=== PATIENT | male | born 1955 | race Caucasian/White ===

== ENCOUNTER 2017-01-08 14:18 | Emergency (ER) | payer BC ==
[2017-01-08 15:08] LABS: #Lymphocytes 1.5 thou/uL (1.20-3.40); #Monocytes 0.7 thou/uL (0.11-0.59); #Neutrophils 4.5 thou/uL (1.40-6.50); %Basophils 0.4 % (0.0-1.0); %Eosinophils 0.5 % (0.0-10.0); %Lymphocytes 22.3 % (21.0-51.0); %Monocytes 9.8 % (0.0-10.0); Hematocrit 45.7 % (42.0-52.0); Red Blood Cell (RBC) Count 4.84 mill/uL (4.70-6.10); White Blood Cell (WBC) Count 6.7 thou/uL (4.8-10.8)
[2017-01-08 15:23] LABS: ALT (SGPT) 20 U/L (8-55); AST (SGOT) 17 U/L (5-34); Alkaline Phosphatase 55 U/L (40-150); Anion Gap 11 mmol/L (10-20); BUN (Urea Nitrogen) 23 mg/dL (8.4-25.7); Bilirubin, Total 0.7 mg/dL (0.2-1.2); CK (CPK) 212 U/L (30-200); Calc. Creatinine Clearance 0 mL/min (70-130); Calcium 9.3 mg/dL (7.8-10.44); Carbon Dioxide 28 mmol/L (22-29); Chloride 103 mmol/L (98-107); Estimated GFR-MDRD 74; Globulin 2.9 g/dL (2.4-3.5); Lipase 50 U/L (8-78); Protein, Total 7.2 g/dL (6.0-8.3)
[2017-01-08 15:35] LABS: Troponin I Less than 0.010 ng/mL (< 0.028)
[2017-01-08 15:40] LABS: Bilirubin Negative (Negative); Blood, Urine Negative (Negative); Glucose, Urine (Dipstick) Negative (Negative); Ketone, Urine Negative (Negative); Nitrite Negative (Negative); Protein, Urine (Dipstick) Negative (Neg-Trace); Urobilinogen 0.2 mg/dL (0.2-1.0)
--- NOTE | 2017-01-08 17:08 | RAD ---
PORTABLE CHEST: Date: 01/08/17 HISTORY: Dyspnea. FINDINGS: Lungs are clear. Vasculature is normal. Heart size within normal range. IMPRESSION: No acute process identified. POS: [id number]
== END 2017-01-08 16:22 | disposition home or self-care (01) ==
LOC: ERS 14:18
DX: R00.2 Palpitations (principal); F41.9 Anxiety disorder, unspecified
CPT/HCPCS: 36415; 71010; 80053; 81003; 82550; 82553; 83690; 84443; 84484; 85025; 93005

== ENCOUNTER 2021-01-07 09:17 | Outpatient (CLI) | payer BC | END 2021-01-07 09:18 | disposition home or self-care (01) | LOC: LABBT 09:17 | PROVIDERS: ATTEND Surgery | DX: Z01.818 Encounter for other preprocedural examination (principal); M50.10 Cervical disc disorder with radiculopathy, unspecified cervical region; M48.02 Spinal stenosis, cervical region; Z20.822 Contact with and (suspected) exposure to COVID-19 | CPT/HCPCS: 80048; 85027; 85610; 85730; 86850; 86900; 86901; 93005; 93010; U0003; U0005 ==

== ENCOUNTER 2021-01-10 05:59 | Observation (INO) | payer BC ==
[2021-01-07 13:01] LABS: Anion Gap 14 mmol/L (10-20); BUN (Urea Nitrogen) 18 mg/dL (8.4-25.7); Calc. Creatinine Clearance 0 mL/min (70-130); Calcium 9.2 mg/dL (7.8-10.44); Carbon Dioxide 25 mmol/L (23-31); Chloride 106 mmol/L (98-107); Glucose 183 mg/dL (80-115); Sodium 141 mmol/L (136-145)
[2021-01-07 13:04] LABS: Hemoglobin 13.5 g/dL (13.5-17.5); Mean Corpuscular HGB CONC 32.6 g/dL (32.0-36.0); Mean Corpuscular Volume 95.2 fl (81.2-95.1); Platelet Count 213 10x3/uL (150-450); RBC Distribution Width 13.2 % (11.5-14.5); Red Blood Cell (RBC) Count 4.35 10x6/uL (4.32-5.72); White Blood Cell (WBC) Count 4.9 10x3/uL (3.5-10.5)
[2021-01-07 13:16] LABS: INR-International Normal Ratio 0.9; PTT 25.1 sec (22.0-33.0); Prothrombin Time 10.4 sec (9.5-12.1)
[2021-01-07 23:41] LABS: SARS-CoV-2 PCR by NAA Not Detected (NotDetected)
[2021-01-09 11:30] VITALS: BMI 34.4
[2021-01-10] MEDS ORDERED: Clindamycin/D5W 900 mg/50 ml Premix Bag ONE (06:08)
[2021-01-10] MEDS ORDERED: Levofloxacin 500 mg/D5W 100 ml Premix Bag ONE (06:09)
[2021-01-10] MEDS ORDERED: Thrombin 5000 UNITS/5 ML VIAL ONE (06:31)
[2021-01-10] MEDS ORDERED: Fentanyl 250 MCG/5 ML VIAL ONE (06:57)
[2021-01-10] MEDS ORDERED: ePHEDrine 50 MG/ML VIAL ONE (07:44)
[2021-01-10] MEDS ORDERED: PROPOFOL 200 MG/20 ML VIAL ONE (07:44)
[2021-01-10] MEDS ORDERED: Lidocaine 1% PF 5 ML VIAL ONE (07:44)
[2021-01-10] MEDS ORDERED: Glycopyrrolate 0.2 MG/ML 5 ML SYRINGE ONE (07:44)
[2021-01-10] MEDS ORDERED: Ondansetron PF 4 MG/2 ML Vial ONE (07:44)
[2021-01-10] MEDS ORDERED: Ketorolac Tromethamine 30 MG/ML VIAL ONE (07:44)
[2021-01-10] MEDS ORDERED: Dexamethasone 20 MG/5 ML VIAL ONE (07:44)
[2021-01-10] MEDS ORDERED: Rocuronium Bromide 10 MG/ML (10ML VIAL) ONE (07:44)
[2021-01-10] MEDS ORDERED: Acetaminophen 325 MG TAB PO PRN (08:00)
[2021-01-10] MEDS ORDERED: traMADol HCl 50 MG TAB PO PRN (08:00)
[2021-01-10] MEDS ORDERED: tiZANidine HCl 4 MG TAB PO PRN (08:00)
[2021-01-10] MEDS ORDERED: HYDROcodone/Acetaminophen 7.5/325 mg Tablet PO PRN (08:00)
[2021-01-10] MEDS ORDERED: Morphine 4 MG/ML VIAL SLOW IVP PRN (08:00)
[2021-01-10] MEDS ORDERED: hydrALAZINE 20 MG/ML VIAL SLOW IVP PRN (08:03)
[2021-01-10] MEDS ORDERED: Fentanyl 100 MCG/2 ML VIAL ONE (10:29)
[2021-01-10] MEDS ORDERED: FLU VACC QS2021-22(6MOS UP)/PF 60 MCG/0.5 ML SYRINGE IM ONE (15:00)
[2021-01-10] MEDS: Clindamycin/D5W 900 MG in Premix Bag 1 BAG IVPB SCH ×2 (15:06→21:26)
[2021-01-10] MEDS: Hydrochlorothiazide 25 MG TAB PO SCH (15:08)
[2021-01-10] MEDS: Sodium Chloride 0.9% 1,000 ML IV SCH ×2 (15:21→20:16)
[2021-01-10] MEDS ORDERED: Simvastatin 40 MG TAB PO SCH (21:00)
[2021-01-10] MEDS ORDERED: Amlodipine 5 MG TAB PO SCH (21:00)
[2021-01-10] MEDS ORDERED: Atorvastatin Calcium 20 MG TAB PO SCH (21:00)
[2021-01-10] MEDS ORDERED: FLUoxetine HCl 20 MG CAP PO SCH (21:00)
[2021-01-11] MEDS ORDERED: Tamsulosin HCl 0.4 MG CAP PO SCH (02:15)
[2021-01-11] MEDS: Clindamycin/D5W 900 MG in Premix Bag 1 BAG IVPB SCH (05:56)
[2021-01-11] MEDS: Hydrochlorothiazide 25 MG TAB PO SCH (09:16)
[2021-01-11] MEDS: Amlodipine 5 MG TAB PO SCH ×2 (09:16→09:46)
[2021-01-11 09:20] VITALS: BP 149/78; TEMP 97.8
== END 2021-01-11 10:04 | disposition home or self-care (01) ==
LOC: SDC 05:59 → SURG B 08:00
PROVIDERS: ADMIT Surgery; ATTEND Surgery
PROC: 0RG10A0 Fusion of Cervical Vertebral Joint with Interbody Fusion Device, Anterior Approach, Anterior Column, Open Approach (ICD-10-PCS; principal; 2021-01-10)
DX: M50.123 Cervical disc disorder at C6-C7 level with radiculopathy (principal); M48.02 Spinal stenosis, cervical region; Z79.899 Other long term (current) drug therapy; Z88.0 Allergy status to penicillin; Z88.5 Allergy status to narcotic agent; Z88.8 Allergy status to other drugs, medicaments and biological substances; Z20.822 Contact with and (suspected) exposure to COVID-19
CPT/HCPCS: 51701; 51798; 76000; 80048; 85027; 85610; 85730; 86850; 86900; 86901; 96374; 96376; C1713; C1776; G0378; J1100; J1885; J1956; J2405; J2704; J3010; J3490; U0003; U0005

== ENCOUNTER 2021-02-19 11:20 | Outpatient (CLI) | payer BC | END 2021-02-19 11:21 | disposition home or self-care (01) | LOC: SCSRAD 11:20 | PROVIDERS: ATTEND Surgery | DX: M50.10 Cervical disc disorder with radiculopathy, unspecified cervical region (principal); M48.02 Spinal stenosis, cervical region; M47.22 Other spondylosis with radiculopathy, cervical region; Z98.890 Other specified postprocedural states | CPT/HCPCS: 72040 ==